=== PATIENT | male | born 1950 | race African-American/Black ===

== ENCOUNTER 2019-02-18 04:23 | Emergency (ER) | payer BC, MEDICARE, OTHER ==
[~2019-02-18] VITALS: Ht 167.6 cm; Wt 91.0 kg
[2019-02-18] MEDS ORDERED: PERMETHRIN 5% CREAM 60GM TOP ONE (06:30)
[2019-02-19 07:58] VITALS: BP 138/79
== END 2019-02-19 14:28 | disposition home or self-care (01) ==
LOC: ER 04:23
DX: S40.812A Abrasion of left upper arm, initial encounter (principal); S40.811A Abrasion of right upper arm, initial encounter; S30.811A Abrasion of abdominal wall, initial encounter; S20.319A Abrasion of unspecified front wall of thorax, initial encounter; S00.86XA Insect bite (nonvenomous) of other part of head, initial encounter; B85.0 Pediculosis due to Pediculus humanus capitis; W57.XXXA Bitten or stung by nonvenomous insect and other nonvenomous arthropods, initial encounter; Y93.89 Activity, other specified; Y92.89 Other specified places as the place of occurrence of the external cause; Y99.8 Other external cause status
CPT/HCPCS: 99283